=== PATIENT | male | born 1980 | race Caucasian/White ===

== ENCOUNTER 2018-11-06 15:08 | Inpatient (IN) ==
--- NOTE | 2018-11-06 15:33 | ED ---
HPI General Chief Complaint: Back Pain/Injury Stated Complaint: Back Pain Time Seen by Provider: 11/06/18 15:25 Source: patient Mode of arrival: EMS History of Present Illness HPI Narrative: Patient is a 38-year-old male with no stated past medical history who presents today with complaints of back pain. Patient states the pain has been ongoing since June. He has had progressive weakening of his lower extremities with numbness, tingling, and pain in his right leg. He states initially in June he would just get fatigued and would be unable to stand for long periods of time but this is progressively worsened to the point where the second week in September he was in bed primarily because he could not stand. He was seen for this on 11/[address] Buitrago and was prescribed naproxen as well as Flexeril and advised to follow-up and get the MRI done that was scheduled. Patient states that today he sneezed and felt something give in his back, reporting he was immediately not able to support himself and lowered himself to the ground. He called EMS and was brought here for further evaluation. Patient reports he has an MRI scheduled next week. He reports the naproxen and Flexeril are not really helping. Denies any bowel or bladder incontinence or saddle anesthesia. Related Data Home Medications Medication Instructions Recorded Confirmed fenofibrate 160 mg PO DAILY 11/03/18 11/06/18 fluoxetine [Prozac] 30 mg PO DAILY 11/03/18 11/06/18 levothyroxine 112 mcg PO DAILY 11/03/18 11/06/18 lisinopril 10 mg PO DAILY 11/03/18 11/06/18 topiramate [Topamax] 100 mg PO BID 11/03/18 11/06/18 Previous Rx's Medication Instructions Recorded cyclobenzaprine 10 mg PO Q8H PRN #15 tab 11/03/18 naproxen 500 mg PO Q12H PRN #20 tab 11/03/18 Allergies Allergy/AdvReac Type Severity Reaction Status Date / Time No Known Allergies Allergy Verified 11/03/18 14:33 Review of Systems ROS: all other systems reviewed are negative PMFSH Social History Social History Substance History: No History of Abuse Smoking Status: Never smoker How Often Do You Have a Drink Containing Alcohol: Never Recent Travel in [facility] within the Last 8 Weeks: No Recent Out of Country Travel within the Last 8 Weeks: No Course Initial Documented Vital Signs Temperature 98.4 F 11/06/18 15:33 Pulse Rate 60 11/06/18 15:33 Respiratory Rate 16 11/06/18 15:33 Blood Pressure 114/64 11/06/18 15:33 Pulse Oximetry 97 11/06/18 15:33 Last Documented Vital Signs Temperature 98.4 F 11/06/18 15:33 Pulse Rate 75 11/06/18 18:08 Respiratory Rate 16 11/06/18 18:17 Blood Pressure 115/67 11/06/18 18:08 Pulse Oximetry 97 11/06/18 18:08 Medical Decision Making DANIEL Attestation DANIEL supervised visit: Yes Attestation: I, Dr. Harrison, have reviewed the advance practice practitioner's documentation and am in agreement, met with the patient face to face, made the diagnosis, and the medical decision making was done by me. *My assessment and Findings: Herniated nucleus pulposus at L4-L5 level. There is thecal sac compression with nerve compression. Patient is currently not with acute weakness. He does have pain and some paresthesias down his right leg. Discussion with Dr. Puentes, on-call neurosurgeon results and recommending the patient be admitted. The patient will be admitted to the hospitalist service. Patient was discussed with Dr. ariza. Plan is to observe and likely do surgery on Friday. MDM Narrative Medical decision making narrative: .38-year-old male patient with back pain since June with progressive weakening of the lower extremities as well as pain in the right lower extremity presents today with exacerbation of right lower extremity weakness and pain after sneezing earlier today. On exam motor strength is 4-5 out of 5 bilateral lower extremities. Normal sensation. Pepcid patient is able to dorsiflex and plantarflex. 1+ patellar reflexes bilaterally. Patient's history MRI was ordered. MRI showed degenerative disc disease at L4-L5 with a large disc protrusion demonstrating mass-effect on the nerve roots within the thecal sac. Call placed to Dr. Puentes by Dr. Harrison. Case discussed at length. Dr. Puentes suggest admission observation with possible surgery on Friday. Discussed plan of care with patient who is in agreement. Call placed to hospitalist for admission. Saline lock placed. Solu-Medrol 125 mg IV given. Medical Screen Exam Complete: Yes Emergency Medical Condition: Yes Differential Diagnosis Differential Diagnosis: Lumbar radiculopathy/sciatica Lab Data Result diagrams: 11/06/18 18:05 11/06/18 18:05 Lab Results 11/06/18 11/06/18 11/06/18 Range/Units 18:05 18:05 18:05 CBC w Diff Slide review pending WBC 15.5 H (4.0-11.0) th/mm3 RBC 4.13 L (4.50-5.90) mil/mm3 Hgb 13.1 (13.0-17.0) gm/dL Hct 38.9 L (39.0-51.0) % MCV 94.2 (80.0-100.0) fL MCH 31.7 (27.0-34.0) pg MCHC 33.7 (32.0-36.0) % RDW 13.6 (11.6-17.2) % Plt Count 274 (150-450) th/mm3 MPV 9.5 (7.0-11.0) fL Neut % (Auto) 73.6 H (16.0-70.0) % Lymph % (Auto) 17.8 (9.0-44.0) % [place] % (Auto) 5.0 (0.0-8.0) % Eos % (Auto) 2.5 (0.0-4.0) % Baso % (Auto) 1.1 (0.0-2.0) % Neut # (Auto) 11.3 H (1.8-7.7) th/mm3 Lymph # (Auto) 2.8 (1.0-4.8) th/mm3 [place] # (Auto) 0.8 (0.0-0.9) th/mm3 Eos # (Auto) 0.4 (0.0-0.4) th/mm3 Baso # (Auto) 0.2 (0.0-0.2) th/mm3 WBC Differential . Diff Scan Auto diff confirmed Differential Comment . Platelet Estimate Normal (Normal) Platelet Morphology Normal (Normal) RBC Morphology Normal (Normal) PT 10.6 (9.8-11.6) sec INR 1.0 Ratio Sodium 141 (136-145) meq/L Potassium 3.9 (3.5-5.1) meq/L Chloride 106 (98-107) meq/L Carbon Dioxide 25.8 (21.0-32.0) meq/L Anion Gap 9 (5-15) meq/L BUN 28 H (7-18) mg/dL Creatinine 1.10 (0.60-1.30) mg/dL Estimated GFR 75 L (>89) mL/min Random Glucose 92 (74-106) mg/dL Calcium 8.9 (8.5-10.1) mg/dL Imaging Data Radiologist's impression: Lumbar Spine MRI 11/06/18 15:26 CONCLUSION: 1. Degenerative disc disease at L4-5 with large disc protrusion demonstrating mass effect on the nerve roots within the thecal sac. Discharge Plan Discharge Disposition Patient Disposition: ED Admit(ED Internal Use Only) Discharge Details Diagnosis: Herniated nucleus pulposus, L4-5, Hypertension, Hypothyroidism Physicians Team ED Provider: Fracisco Harrison ED Midlevel Provider: Betzaida Valles Primary Care Provider: NON STAFF,PROVIDER Other Providers: ; Sivakumar Puentes Rxs /Orders / Referrals /Forms Prescriptions: No Action lisinopril 10 mg Tablet 10 mg PO DAILY RF: 0 fluoxetine [Prozac] 10 mg Capsule 30 mg PO DAILY RF: 0 topiramate [Topamax] 100 mg Tablet 100 mg PO BID RF: 0 levothyroxine 112 mcg Tablet 112 mcg PO DAILY RF: 0 fenofibrate 160 mg Tablet 160 mg PO DAILY RF: 0 naproxen 500 mg tablet 500 mg PO Q12H PRN (Reason: pain) Qty: 20 RF: 0 cyclobenzaprine 10 mg tablet 10 mg PO Q8H PRN (Reason: muscle spasm) Qty: 15 RF: 0 Status ED Status: Admitted Patient
--- NOTE | 2018-11-06 17:31 | MR ---
EXAM DATE: 11/06/2018 5:22 PM EST AGE/SEX: 38 years / Male INDICATIONS: Inability to ambulate. Low back and right leg pain. CLINICAL DATA: This is the patient's initial encounter. Patient reports that signs and symptoms have been present for 1 day and indicates a pain score of 5/10. MEDICAL/SURGICAL HISTORY: None. Cholecystectomy. COMPARISON: . TECHNIQUE: Multiplanar, multisequence MRI of the lumbar spine was performed without contrast. Patie nt was scanned in a sitting position; neutral, flexion, and extension scans were performed in the sa gittal plane. FINDINGS: The most caudal-appearing lumbar vertebra is numbered as L5. There is mild disc desiccation greatest at L4-5. Mild anterior osteophyte formation at L4 and L5 is s een. There is mild reactive endplate edema at L4-5. T12-L1: The thecal sac has a normal diameter. No evidence of disc bulge or protrusion. The neural foramina are patent bilaterally. L1-L2: The thecal sac has a normal diameter. No evidence of disc bulge or protrusion. The neural foramina are patent bilaterally. L2-L3: The thecal sac has a normal diameter. No evidence of disc bulge or protrusion. The neural foramina are patent bilaterally. L3-L4: The thecal sac has a normal diameter. No evidence of disc bulge or protrusion. The neural foramina are patent bilaterally. L4-L5: A large right central disc protrusion identified resulting in moderate canal stenosis and ma ss effect on the nerve roots within the thecal sac. On axial image 32 the protrusion extends 1.1 cm i n AP dimension and 1 cm in transverse dimension. L5-S1: The thecal sac has a normal diameter. No evidence of disc bulge or protrusion. The neural foramina are patent bilaterally. CONCLUSION: 1. Degenerative disc disease at L4-5 with large disc protrusion demonstrating mass effect on the ner ve roots within the thecal sac. Electronically signed by: Chacorta Agarwal MD Board Certified Radiologist 11/06/2018 5:30 PM EST
[2018-11-06] MEDS ORDERED: MethylPREDNISolone Sod Succinate Inj 125 MG/2 ML Vial IV.PUSH ONE (17:51)
[2018-11-06] MEDS ORDERED: Acetaminophen 325 MG Tablet PO PRN (18:06)
[2018-11-06] MEDS ORDERED: Naloxone Inj 0.4 MG/ML Vial IV.PUSH PRN (18:06)
[2018-11-06] MEDS ORDERED: Temazepam 15 MG Capsule PO PRN (18:06)
[2018-11-06] MEDS ORDERED: Bisacodyl 10 MG Supp RECTAL PRN (18:06)
[2018-11-06 18:12] LABS: Baso # (Auto) 0.2 th/mm3 (0.0-0.2); Baso % (Auto) 1.1 % (0.0-2.0); Eos # (Auto) 0.4 th/mm3 (0.0-0.4); Eos % (Auto) 2.5 % (0.0-4.0); Hematocrit 38.9 % (39.0-51.0); Hemoglobin 13.1 gm/dL (13.0-17.0); Lymph # (Auto) 2.8 th/mm3 (1.0-4.8); Lymph % (Auto) 17.8 % (9.0-44.0); Mean Corpuscular HGB Conc 33.7 % (32.0-36.0); Mean Corpuscular Hemoglobin 31.7 pg (27.0-34.0); Mean Corpuscular Volume 94.2 fL (80.0-100.0); Mean Platelet Volume 9.5 fL (7.0-11.0); Mono # (Auto) 0.8 th/mm3 (0.0-0.9); Neut # (Auto) 11.3 th/mm3 (1.8-7.7); Neut % (Auto) 73.6 % (16.0-70.0); Platelet Count 274 th/mm3 (150-450); Red Blood Count 4.13 mil/mm3 (4.50-5.90); Red Cell Distribution Width 13.6 % (11.6-17.2); White Blood Count 15.5 th/mm3 (4.0-11.0)
[2018-11-06 18:25] LABS: Potassium 3.9 meq/L (3.5-5.1)
[2018-11-06 18:27] LABS: Calcium 8.9 mg/dL (8.5-10.1)
[2018-11-06 18:28] LABS: Carbon Dioxide 25.8 meq/L (21.0-32.0); Prothrombin Time 10.6 sec (9.8-11.6)
[2018-11-06 18:29] LABS: Platelet Estimate Normal (Normal); Platelet Morphology Normal (Normal); RBC Morphology Normal (Normal)
[2018-11-06] MEDS: Senna/Docusate Sodium 8.6/50 MG Tablet PO SCH (20:37)
[2018-11-06] MEDS: Topiramate 100 MG Tablet PO SCH (20:38)
--- NOTE | 2018-11-07 06:42 | P.HPIM ---
History of Present Illness Primary Care Physician: PROVIDER NON STAFF Mr. Black is a pleasant 38-year-old male with a history of hypertension, hypothyroidism, hypertriglyceridemia, and PTSD who presented to the emergency room and [employer] on 11/06/2018 complaining of severe back pain with inability to ambulate. MRI of the lumbar spine without contrast showed degenerative disc disease at L4 through L5 with large disc protrusion demonstrating mass-effect on the nerve roots within the thecal sac. He was transferred to [facility] for further evaluation and management with neurosurgery consultation. The patient is seen in his hospital room where he reports that he has been having symptoms since about June. He has had some progressive weakness and was spending more more time lying in bed. He thought that he was just having muscle pain and weakness related to muscle spasms. He was trying to work them out with a yoga routine. Yesterday, he sneezed and felt something "pop" in his back with immediate inability to support himself in a standing position. He crawled from his car to his garage and decided to call EMS for transport to the hospital. He is also complaining of right lower extremity radicular pain that goes down the back of the thigh and is described as sharp and shooting with some numbness and tingling. He reports improvement in symptoms with IV steroids , opioids, and muscle relaxants he is received here at the hospital. He denies any recent fevers, chills, nausea, vomiting, diarrhea, chest pain, shortness of breath. He denies saddle anesthesia as well as denying bowel or bladder incontinence. He indicates he is normally fairly healthy and has recently intentionally lost some weight with diet and exercise. Inpatient Certification Inpatient Certification: I certify that the inpatient services were ordered in accordance with Medicare regulations governing the order. This includes certification that hospital inpatient services are reasonable and necessary and in the case of services not specified as inpatient-only under 42 CFR 419.22(n), that they are appropriately provided as inpatient services in accordance to with the 2-midnight benchmark under 43 CFR 412.3(e) Estimated Total Length of Stay (Days): 2 Plans for Post Hospital Care: Not yet determined Review of Systems Review of Systems: all other systems reviewed are negative [facility] Medical History Medical History Hypertriglyceridemia (Chronic) Hypothyroidism (Chronic) Hypertension (Chronic) PTSD (post-traumatic stress disorder) (Chronic) Surgical History Surgical History History of appendectomy (Acute) History of tonsillectomy and adenoidectomy (Acute) H/O vasectomy (Acute) Hx of cholecystectomy (Acute) S/P repair of hydrocele (Acute) Social History Social History Substance History: No History of Abuse Smoking Status: Never smoker How Often Do You Have a Drink Containing Alcohol: Never Recent Travel in [facility] within the Last 8 Weeks: No Recent Out of Country Travel within the Last 8 Weeks: No Immunization History Tetanus Immunization: <5 Years Medications and Allergies Allergies Allergy/AdvReac Type Severity Reaction Status Date / Time No Known Allergies Allergy Verified 11/03/18 14:33 Home Medications Medication Instructions Recorded Confirmed Type fenofibrate 160 mg PO DAILY 11/03/18 11/06/18 History fluoxetine [Prozac] 30 mg PO DAILY 11/03/18 11/06/18 History levothyroxine 112 mcg PO DAILY 11/03/18 11/06/18 History lisinopril 10 mg PO DAILY 11/03/18 11/06/18 History topiramate [Topamax] 100 mg PO BID 11/03/18 11/06/18 History Active Medications: Active Medications Acetaminophen (Tylenol) 650 mg PO Q4H PRN PRN Reason: Temp > 100.4 Al Hydroxide/Mg Hydroxide (Milk Of Magnesia Liq) 30 ml PO Q12H PRN PRN Reason: Mild Constipation Bisacodyl (Dulcolax Supp) 10 mg RECTAL DAILY PRN PRN Reason: SEVERE CONSITIPATION Cyclobenzaprine HCl (Flexeril) 10 mg PO Q8H PRN PRN Reason: muscle spasm Last Admin: 11/06/18 23:27 Dose: 10 mg Dexamethasone Sodium Phosphate (Decadron Inj) 4 mg IV.PUSH Q6HR EVAN Last Admin: 11/06/18 23:27 Dose: 4 mg Fenofibrate (Tricor) 145 mg PO DAILY EVAN Lactulose (Lactulose Liq) 30 ml PO DAILY PRN PRN Reason: SEVERE CONSITIPATION Levothyroxine Sodium (Synthroid) 112 mcg PO DAILY EVAN Lisinopril (Prinivil) 10 mg PO DAILY EVAN Naloxone HCl (Narcan Inj) 0.4 mg IV.PUSH UNSCH PRN PRN Reason: SEE LABEL COMMENTS Ondansetron HCl (Zofran Inj) 4 mg IV.PUSH Q6H PRN PRN Reason: NAUSEA OR VOMITING Oxycodone/Acetaminophen (Percocet 5/325 Mg) 1 tab PO Q6H PRN PRN Reason: Acute Pain Pantoprazole Sodium (Protonix) 40 mg PO DAILY [facility] Senna/Docusate Sodium (Martha-Colace) 1 tab PO BID [facility] Last Admin: 11/06/18 20:37 Dose: 1 tab Sennosides (Senokot) 17.2 mg PO Q12H PRN PRN Reason: Moderate Constipation Sodium Chloride (Ns Flush) 2 ml IV.FLUSH BID [facility] Last Admin: 11/06/18 20:39 Dose: 2 ml Sodium Chloride (Ns Flush) 2 ml IV.FLUSH PRN PRN PRN Reason: FLUSH AFTER USING IV ACCESS Temazepam (Restoril) 15 mg PO HS PRN PRN Reason: INSOMNIA Topiramate (Topamax) 100 mg PO BID [facility] Last Admin: 11/06/18 20:38 Dose: 100 mg Physical Exam Vital signs: Vital Signs 11/06/18 15:33 11/06/18 18:08 11/06/18 18:17 Temperature 98.4 F Pulse Rate 60 75 Respiratory Rate 16 16 16 Blood Pressure 114/64 115/67 Pulse Oximetry 97 97 11/06/18 19:57 11/06/18 21:40 11/06/18 23:40 Temperature 98 F Pulse Rate 76 72 67 Respiratory Rate 18 18 16 Blood Pressure 127/76 135/72 117/62 Pulse Oximetry 98 98 96 11/07/18 04:00 Temperature 97.5 F L Pulse Rate 55 L Respiratory Rate 12 Blood Pressure 111/63 Pulse Oximetry 98 Intake & Output 11/06/18 11/06/18 11/07/18 06:59 18:59 06:59 Weight 83.007 kg Narrative: GENERAL: This is a pleasant well-nourished, well-developed patient, in no apparent distress. SKIN: No rashes, ecchymoses or lesions. Cool and dry. HEAD: Atraumatic. Normocephalic. EYES: No scleral icterus. No injection or drainage. ENT: Nose without bleeding, purulent drainage. NECK: Trachea midline. No JVD. CARDIOVASCULAR: Regular rate and rhythm without murmurs, gallops, or rubs. RESPIRATORY: Clear to auscultation. Breath sounds equal bilaterally. No wheezes , rales, or rhonchi. GASTROINTESTINAL: Abdomen soft, non-tender, nondistended. No guarding. c/o right radicular pain during exam. MUSCULOSKELETAL: Extremities without clubbing, cyanosis, or edema. No calf tenderness. NEUROLOGICAL: Awake and alert. Motor and sensory grossly within normal limits. Normal speech. . Results Labs CBC & Chem 7: 11/06/18 18:05 11/06/18 18:05 Imaging Impressions Lumbar Spine MRI 11/06/18 15:26 CONCLUSION: 1. Degenerative disc disease at L4-5 with large disc protrusion demonstrating mass effect on the nerve roots within the thecal sac. Caprini VTE Risk Assessment Caprini VTE Risk Assessment: No/Low Risk (score <= 1) Caprini Risk Assessment Model: Point Value = 1 Point Value = 2 Point Value = 3 Point Value = 5 Age 41-60 Minor surgery BMI > 25 kg/m2 Swollen legs Varicose veins or History of unexplained or recurrent spontaneous Oral contraceptives or hormone replacement Sepsis (< 1 month) Serious lung disease, including pneumonia (< 1 month) Abnormal pulmonary function Acute myocardial infarction Congestive heart failure (< 1 month) History of inflammatory bowel disease Medical patient at bed rest Age 61-74 Arthroscopic surgery Major open surgery (> 45 min) Laparoscopic surgery (> 45 min) Malignancy Confined to bed (> 72 hours) Immobilizing plaster cast Central venous access Age >= 75 History of VTE Family history of VTE Factor V Leiden Prothrombin [id number] Lupus anticoagulant Anticardiolipin antibodies Elevated serum homocysteine Heparin-induced thrombocytopenia Other congenital or acquired thrombophilia Stroke (< 1 month) Elective arthroplasty Hip, pelvis, or leg fracture Acute spinal cord injury (< 1 month) Prophylaxis Regimen: Total Risk Factor Score Risk Level Prophylaxis Regimen 0-1 Low Early ambulation 2 Moderate Order ONE of the following: *Sequential Compression Device (SCD) *Heparin 5000 units SQ BID 3-4 Higher Order ONE of the following medications: *Heparin 5000 units SQ TID *Enoxaparin/Lovenox 40 mg SQ daily (WT < 150 kg, CrCl > 30 mL/min) *Enoxaparin/Lovenox 30 mg SQ daily (WT < 150 kg, CrCl > 10-29 mL/min) *Enoxaparin/Lovenox 30 mg SQ BID (WT < 150 kg, CrCl > 30 mL/min) AND/OR *Sequential Compression Device (SCD) 5 or more Highest Order ONE of the following medications: *Heparin 5000 units SQ TID (Preferred with Epidurals) *Enoxaparin/Lovenox 40 mg SQ daily (WT < 150 kg, CrCl > 30 mL/min) *Enoxaparin/Lovenox 30 mg SQ daily (WT < 150 kg, CrCl > 10-29 mL/min) *Enoxaparin/Lovenox 30 mg SQ BID (WT < 150 kg, CrCl > 30 mL/min) AND *Sequential Compression Device (SCD) Assessment and Plan Plan Mr. Black is a pleasant 38-year-old male with a history of hypertension, hypothyroidism, hypertriglyceridemia, and PTSD who presented to the emergency room and [employer] on 11/06/2018 complaining of severe back pain with inability to ambulate. MRI of the lumbar spine without contrast showed degenerative disc disease at L4 through L5 with large disc protrusion demonstrating mass-effect on the nerve roots within the thecal sac. He was transferred to [facility] for further evaluation and management with neurosurgery consultation. Herniated nucleus pulposis L4 through L5 -Consult to neurosurgery -appreciate assistance -Plan for possible surgery Friday after observing and providing anti- inflammatory medications over the weekend -Analgesia: Percocet 5/325 1 every 6 as needed, Flexeril 10 mg p.o. every 8 hours as needed for muscle spasm -Anti-inflammatory: Dexamethasone 4 mg IV every 6 hours with Protonix 40 mg p.o. daily for gastric protection -Neurochecks every 4 hours Hypertension -Continue home lisinopril and monitor blood pressures and titrate treatments as needed Hypertriglyceridemia -Continue home fenofibrate or formulary equivalent Hypothyroidism -Continue home Synthroid PTSD -Continue home Prozac and Topamax DVT prophylaxis -SCDs The exam, history, and the medical decision-making described in the above note were completed with the assistance of the mid-level provider. I reviewed and agree with the findings presented. I attest that I had a [id number] encounter with the patient on the same day, and personally performed and documented my assessment and findings in the medical record. NeuroSx has seen and evaluated patient and recommended bilateral L4-L5 microdiscectomy which patient agrees NPO rubens night full labwork on rocky am neuro checks PT after surgery completed UA w/cultures as per neuroSx continue pain management HOLD lisinopril day prior to OR b continue steroids for now and continue PPI too for GI ppx dvt ppx: scd ok, after OR will recommend ac start for dvt chemoprevention
[2018-11-07] MEDS: FLUoxetine 10 MG Capsule PO SCH (09:42)
[2018-11-07] MEDS: Levothyroxine 112 MCG Tablet PO SCH (09:42)
[2018-11-07] MEDS: Topiramate 100 MG Tablet PO SCH ×2 (09:43→21:04)
[2018-11-07] MEDS: Senna/Docusate Sodium 8.6/50 MG Tablet PO SCH ×2 (09:43→21:04)
[2018-11-07] MEDS: Fenofibrate 145 MG Tablet PO SCH (09:43)
[2018-11-07] MEDS: Lisinopril 10 MG Tablet PO SCH (09:43)
--- NOTE | 2018-11-07 10:33 | MB ---
cc: Jimmy Maldonado MD DATE: 11/07/2018 TIME: 9 a.m. Report of an initial comprehensive floor inpatient neurosurgical consultation. The patient was interviewed, examined, the documentation, laboratory evaluation, and imaging were reviewed. CHIEF COMPLAINT: Low back pain and right sciatica. 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 He describes some numbness in right sciatic distribution and recently some numbness in the left sciatic distribution as well. In any case, he apparently was trying to treat this with bedrest as well as yoga. In any case, he sneezed and developed severe pain and fell to the ground, unable to support himself. This resolved. He sought medical attention in an emergency department and then was transferred here to [facility]. An MRI scan of the lumbosacral spine reveals large free fragment disk herniation at L4-L5, located centrally and paracentrally on the right with cauda equina nerve root compression. PAST MEDICAL HISTORY: Remarkable for history of hypertriglyceridemia, hypothyroidism, hypertension, and PTSD. PAST SURGICAL HISTORY: Remarkable for an appendectomy, tonsillectomy and adenoidectomy, vasectomy, cholecystectomy, and hydrocele repair. MEDICATIONS: Include: 1. Fenofibrate. 2. Fluoxetine. 3. Levothyroxine. 4. Lisinopril. 5. Topiramate. ALLERGIES: HE HAS NO KNOWN DRUG ALLERGIES. SOCIAL HISTORY: He is independent. He works as an artist and lives with his . He denies a history of illicit drug use, ethanol abuse, or cigarette smoking. He does admit to smoking medical marijuana. FAMILY HISTORY: Remarkable for history of anxiety disorder as well as hypertension. REVIEW OF SYSTEMS: The patient admits to weight change, and he has lost over 80 pounds over the last year or two. He denies any fever, chills, or night sweats. He denies any change in his vision or hearing. He denies any headaches. He denies any difficulty with thinking or memory or speech or swallowing or chest pain or shortness of breath or abdominal pain or change in bowel or bladder function or characteristics of his urine or stool. He denies any rash, itching, or easy bruising. He denies any current anxiety or depression. He denies any gait imbalance. NEUROLOGICAL EXAMINATION: VITAL SIGNS: His temperature is 98, his heart rate is 75, blood pressure is 150/67 and his respiratory rate is 16 with an SpO2 on pulse oximetry of 97%. MENTAL STATUS: Testing finds the patient to be awake and alert. He is oriented x3. Cognitive function is grossly intact. His speech is fluent. He seems somewhat anxious and has somewhat of an unusual affect. Cranial nerve testing 2-12 are grossly intact. Visual louis are full to confrontation. 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 His extraocular movements are full, but is conjugant on the right. Funduscopic examination was deferred due to small pupils. Motor examination found bulk and tone to be within normal limits. Power testing was 5+/5+ throughout. Sensory examination was intact to light touch and position throughout with diminished sensation in the bilateral sciatic distribution, right greater than left. Deep tendon reflexes are 1 to 2+ and symmetric with diminished ankle jerks bilaterally. There were no pathological reflexes noted. Cerebellar testing found no dysmetria. Fine coordination was grossly intact. There was no gross truncal nor appendicular ataxia noted. Gait, Romberg, and tandem were not tested. The patient states he is unable to ambulate. His head was normocephalic. Skin was clear, without masses. Neck was supple without meningismus. Lumbosacral spine evaluation revealed pain to palpation over the midline as well as for L4-L5 bilaterally. There was no sciatic notch tenderness. Straight leg raising was positive on the right at 40 degrees and positive on the left at 90 degrees. Hip rotation was full, not painful. It did cause pain to radiate in the low back. Pulses were 4+ present and symmetrical throughout. IMPRESSION: My impression is that the patient has a large free fragment disk herniation at L4-L5, located centrally and paracentrally on the right. He presents with bilateral L5-S1 radiculopathies, more so on the right than the left. He has failed a prolonged course of conservative treatment. RECOMMENDATIONS: Therapeutic options were discussed. I offered bilateral L4-L5 microdiscectomy. The risks, benefits, limitations, complications, and alternatives of this were discussed and enumerated and no guarantees were afforded. He understood this and requested surgical intervention. Essentially informed consent has been obtained and the patient will be scheduled for the above-stated operation early next week. Preoperative orders will be submitted. Thank you for allowing me to participate in the care of this patient. MD CHEYANNE Gruber/brad , 09:40 AM , 09:51 AM MTDIsrael
[2018-11-07 21:58] LABS: Amorphous Sediment,Urine Rare /hpf; Bilirubin,Urine Negative (Negative); Clarity,Urine Hazy (Clear); Color,Urine Yellow (Yellw/Straw); Glucose,Urine (UA) Negative (Negative); Leukocyte Esterase,Urine Negative (Negative); Mucus,Urine Few /lpf (Occasional); Nitrite,Urine Negative (Negative); Specific Gravity,Urine 1.011 (1.002-1.035)
[2018-11-08] MEDS: Lisinopril 10 MG Tablet PO SCH ×2 (09:00→10:01)
[2018-11-08] MEDS: FLUoxetine 10 MG Capsule PO SCH (10:00)
[2018-11-08] MEDS: Levothyroxine 112 MCG Tablet PO SCH (10:01)
[2018-11-08] MEDS: Topiramate 100 MG Tablet PO SCH ×2 (10:01→21:18)
[2018-11-08] MEDS: Senna/Docusate Sodium 8.6/50 MG Tablet PO SCH ×2 (10:02→21:18)
[2018-11-08] MEDS: Fenofibrate 145 MG Tablet PO SCH (10:02)
[2018-11-08] MEDS ORDERED: Metoprolol Tartrate 25 MG Tablet PO ONE (10:16)
[2018-11-08] MEDS ORDERED: Chlorhexidine Gluconate 2% 1 Pack (2 Cloths) TOPICAL ONE (10:16)
[2018-11-08] MEDS ORDERED: Sodium Chlor 0.9% Inj 500 ML IV.SIG SCH (11:00)
--- NOTE | 2018-11-08 12:00 | P.PNIM ---
Subjective Interval history: very pleasant male visited and examined this morning at the bedside + backpain but stable and mildly improved last 24hrs no urinary retention no complaints of saddle anesthesia Physical Exam Vital signs: Vital Signs 11/07/18 12:00 11/07/18 16:00 11/07/18 20:00 Temperature 98.3 F 98.1 F 97.9 F Pulse Rate 74 78 69 Respiratory Rate 20 18 18 Blood Pressure 122/65 124/75 133/82 Pulse Oximetry 97 100 99 11/08/18 00:00 11/08/18 04:00 11/08/18 07:36 Temperature 98.1 F 98.2 F 98.1 F Pulse Rate 50 L 75 66 Respiratory Rate 17 17 18 Blood Pressure 110/60 107/69 110/69 Pulse Oximetry 99 99 94 L 11/08/18 11:32 Temperature 98 F Pulse Rate 75 Respiratory Rate 18 Blood Pressure 120/65 Pulse Oximetry 97 Intake & Output 11/07/18 11/08/18 11/08/18 18:59 06:59 18:59 Intake Total 240 / 240 480 / 480 Balance 240 / 240 480 / 480 Weight 83.1 kg Intake: Oral 240 / 240 480 / 480 Other: # Voids 1 2 1 Date of Last Bowel Movement 11/06/18 11/07/18 # Bowel Movements 1 1 Narrative: GENERAL: This is a pleasant well-nourished, well-developed patient, in no apparent distress. SKIN: No rashes, ecchymoses or lesions. Cool and dry. HEAD: Atraumatic. Normocephalic. EYES: No scleral icterus. No injection or drainage. ENT: Nose without bleeding, purulent drainage. NECK: Trachea midline. No JVD. CARDIOVASCULAR: Regular rate and rhythm without murmurs, gallops, or rubs. RESPIRATORY: Clear to auscultation. Breath sounds equal bilaterally. No wheezes , rales, or rhonchi. GASTROINTESTINAL: Abdomen soft, non-tender, nondistended. No guarding. c/o right radicular pain during exam. MUSCULOSKELETAL: Extremities without clubbing, cyanosis, or edema. No calf tenderness. NEUROLOGICAL: Awake and alert. Motor and sensory grossly within normal limits. Normal speech. no paraspinal tenderness. power 5/5 upper and lower extremity . Results Labs CBC & Chem 7: 11/06/18 18:05 11/06/18 18:05 Assessment and Plan Plan Mr. Black is a pleasant 38-year-old male with a history of hypertension, hypothyroidism, hypertriglyceridemia, and PTSD who presented to the emergency room and [place] on 11/06/2018 complaining of severe back pain with inability to ambulate. MRI of the lumbar spine without contrast showed degenerative disc disease at L4 through L5 with large disc protrusion demonstrating mass-effect on the nerve roots within the thecal sac. He was transferred to [facility] for further evaluation and management with neurosurgery consultation. Herniated nucleus pulposis L4 through L5 -NeurosX recommendations appreciated NPO friday night. O.R friday -Analgesia: Percocet 5/325 1 every 6 as needed, Flexeril 10 mg p.o. every 8 hours as needed for muscle spasm -Anti-inflammatory: Dexamethasone 4 mg IV every 6 hours with Protonix 40 mg p.o. daily for gastric protection -Neurochecks every 4 hours Hypertension -Continue home lisinopril and monitor blood pressures and titrate treatments as needed Hypertriglyceridemia -Continue home fenofibrate or formulary equivalent Hypothyroidism -Continue home Synthroid PTSD -Continue home Prozac and Topamax DVT prophylaxis -SCDs
[2018-11-08 12:30] LABS: Hematocrit 40.9 % (39.0-51.0); Hemoglobin 13.7 gm/dL (13.0-17.0); Mean Corpuscular HGB Conc 33.6 % (32.0-36.0); Mean Corpuscular Hemoglobin 32.5 pg (27.0-34.0); Mean Corpuscular Volume 96.7 fL (80.0-100.0); Mean Platelet Volume 9.2 fL (7.0-11.0); Platelet Count 263 th/mm3 (150-450); Red Blood Count 4.23 mil/mm3 (4.50-5.90); Red Cell Distribution Width 13.8 % (11.6-17.2)
[2018-11-08 12:36] LABS: INR 1.1 Ratio; Prothrombin Time 10.7 sec (9.8-11.6)
[2018-11-08 12:55] LABS: Calcium 9.3 mg/dL (8.5-10.1); Carbon Dioxide 26.1 meq/L (21.0-32.0); Magnesium 2.2 mg/dL (1.5-2.5)
--- NOTE | 2018-11-08 13:16 | P.PNNS ---
Subjective Interval history: November 08, 2018 The patient remained stable overnight. He still complains of low back pain and bilateral sciatica right greater than left with numbness in his right lower extremity and somewhat in his left in a sciatic distribution. Physical Exam Vital signs: Vital Signs 11/07/18 16:00 11/07/18 20:00 11/08/18 00:00 Temperature 98.1 F 97.9 F 98.1 F Pulse Rate 78 69 50 L Respiratory Rate 18 18 17 Blood Pressure 124/75 133/82 110/60 Pulse Oximetry 100 99 99 11/08/18 04:00 11/08/18 07:36 11/08/18 11:32 Temperature 98.2 F 98.1 F 98 F Pulse Rate 75 66 75 Respiratory Rate 17 18 18 Blood Pressure 107/69 110/69 120/65 Pulse Oximetry 99 94 L 97 Intake & Output 11/07/18 11/08/18 11/08/18 18:59 06:59 18:59 Intake Total 240 / 240 480 / 480 Balance 240 / 240 480 / 480 Weight 83.1 kg Intake: Oral 240 / 240 480 / 480 Other: # Voids 1 2 1 Date of Last Bowel Movement 11/06/18 11/07/18 # Bowel Movements 1 1 - Routine Neurological Exam November 08, 2018 Patient is lying in bed is into the room. He is in no acute distress. On neurological examination, mental status testing finds him to be awake and alert. He is oriented by 3. Cognitive functions grossly intact. His speech is fluent. Cranial nerve testing 2 through 12 is grossly intact. Power testing was 5+/5+ throughout. Sensory examination revealed diminished light touch and sensation in a bilateral sciatic distribution right greater than left. Deep tendon reflexes remain 1-2+ and symmetric throughout. There were no pathological reflexes noted. Patient is continent. He has ambulated to the bathroom with some difficulty. Assessment and Plan - Plan November 08, 2018 Therapeutic options have been discussed. I have offered a bilateral L4-L5 microdiscectomy. The risks, benefits, limitations, complications, and alternatives to surgery were discussed and enumerated and no guarantees were afforded. He understood and requested surgical intervention. Informed consent has been obtained. Preoperative orders have been submitted and the patient is scheduled for surgery tomorrow morning. Neurosurgery will follow.
[2018-11-08] MEDS ORDERED: Vancomycin Inj 1,000 MG in Sodium Chlor 0.9% Inj 250 ML IV.SIG PRN (18:26)
[2018-11-09] MEDS: Senna/Docusate Sodium 8.6/50 MG Tablet PO SCH ×2 (08:27→20:42)
[2018-11-09] MEDS: Topiramate 100 MG Tablet PO SCH ×2 (08:27→20:42)
[2018-11-09] MEDS: FLUoxetine 10 MG Capsule PO SCH (08:27)
[2018-11-09] MEDS: Levothyroxine 112 MCG Tablet PO SCH (08:27)
[2018-11-09] MEDS: Fenofibrate 145 MG Tablet PO SCH (08:27)
[2018-11-09] MEDS: Lisinopril 10 MG Tablet PO SCH (08:27)
[2018-11-09 08:31] LABS: Hematocrit 43.7 % (39.0-51.0); Hemoglobin 14.7 gm/dL (13.0-17.0); Mean Corpuscular HGB Conc 33.7 % (32.0-36.0); Mean Corpuscular Hemoglobin 32.5 pg (27.0-34.0); Mean Corpuscular Volume 96.4 fL (80.0-100.0); Mean Platelet Volume 9.1 fL (7.0-11.0); Platelet Count 304 th/mm3 (150-450); Red Blood Count 4.54 mil/mm3 (4.50-5.90); Red Cell Distribution Width 13.2 % (11.6-17.2); White Blood Count 18.6 th/mm3 (4.0-11.0)
[2018-11-09 08:42] LABS: INR 1.1 Ratio; Prothrombin Time 10.8 sec (9.8-11.6)
[2018-11-09 08:56] LABS: Calcium 9.2 mg/dL (8.5-10.1); Carbon Dioxide 26.1 meq/L (21.0-32.0); Magnesium 2.2 mg/dL (1.5-2.5); Potassium 3.6 meq/L (3.5-5.1)
--- NOTE | 2018-11-09 12:43 | P.PNIM ---
Subjective Interval history: Patient seen on follow up this morning prior to going to the OR today with NeuroSx. Currently without new complaints and aagain reports that numbness onthe lateral portion of his RIGHT leg is present. No urinary retention, no saddle anesthesia, no active chest pain or SOB Waiting to go to the OR and will need PT afterwards. Currently NPO Physical Exam Vital signs: Vital Signs 11/08/18 15:38 11/08/18 20:25 11/09/18 00:20 Temperature 97.4 F L 98.7 F 98 F Pulse Rate 64 63 60 Respiratory Rate 18 20 20 Blood Pressure 125/75 126/77 119/71 Pulse Oximetry 99 98 100 11/09/18 04:00 11/09/18 07:32 11/09/18 11:53 Temperature 97.6 F 97.8 F 98.2 F Pulse Rate 62 58 L 62 Respiratory Rate 20 18 18 Blood Pressure 121/71 125/68 113/71 Pulse Oximetry 100 93 L 100 Intake & Output 11/08/18 11/09/18 11/09/18 18:59 06:59 18:59 Intake Total 1440 / 1440 Balance 1440 / 1440 Intake: Oral 1440 / 1440 Other: # Voids 2 3 Date of Last Bowel Movement 11/06/18 11/08/18 # Bowel Movements 1 Narrative: GENERAL: This is a pleasant well-nourished, well-developed patient, in no apparent distress. SKIN: No rashes, ecchymoses or lesions. Cool and dry. HEAD: Atraumatic. Normocephalic. EYES: No scleral icterus. No injection or drainage. ENT: Nose without bleeding, purulent drainage. NECK: Trachea midline. No JVD. CARDIOVASCULAR: Regular rate and rhythm without murmurs, gallops, or rubs. RESPIRATORY: Clear to auscultation. Breath sounds equal bilaterally. No wheezes , rales, or rhonchi. GASTROINTESTINAL: Abdomen soft, non-tender, nondistended. No guarding. c/o right radicular pain during exam. MUSCULOSKELETAL: Extremities without clubbing, cyanosis, or edema. No calf tenderness. NEUROLOGICAL: Awake and alert. Motor and sensory grossly within normal limits. Normal speech. no paraspinal tenderness. power 5/5 upper and lower extremity. Reduced sensation on RIGHT lateral portion of leg < LEFT leg, . Results Labs CBC & Chem 7: 11/09/18 07:46 11/09/18 07:46 Assessment and Plan Plan Mr. Black is a pleasant 38-year-old male with a history of hypertension, hypothyroidism, hypertriglyceridemia, and PTSD who presented to the emergency room and [place] on 11/06/2018 complaining of severe back pain with inability to ambulate. MRI of the lumbar spine without contrast showed degenerative disc disease at L4 through L5 with large disc protrusion demonstrating mass-effect on the nerve roots within the thecal sac. He was transferred to [facility] for further evaluation and management with neurosurgery consultation. Herniated nucleus pulposis L4 through L5 -NeurosX recommendations appreciated via EMR OR scheduled this afternoon PT evaluation for 11/10 -Analgesia: Percocet 5/325 1 every 6 as needed, Flexeril 10 mg p.o. every 8 hours as needed for muscle spasm -Anti-inflammatory: Dexamethasone 4 mg IV every 6 hours with Protonix 40 mg p.o. daily for gastric protection. WBC likely due to steroids no other signs of active infection. will taper steroids after surgery as per neuroSx input and assistance. -Neurochecks every 4 hours Hypertension -Continue home lisinopril and monitor blood pressures and titrate treatments as needed Hypertriglyceridemia -Continue home fenofibrate or formulary equivalent Hypothyroidism -Continue home Synthroid PTSD -Continue home Prozac and Topamax DVT prophylaxis -SCDs Dispo: PT consult for tomorrow, NeuroSx follow up. DC 48hrs likely
[2018-11-09] MEDS ORDERED: Albumin Human 5% Inj 250 ML IV.SIG ONE (12:48)
[2018-11-09] MEDS ORDERED: fentaNYL Citrate Inj 250 MCG/5 ML Ampul ONE (12:49)
[2018-11-09] MEDS ORDERED: Propofol Inj 500 MG/50 ML Vial ONE (12:49)
[2018-11-09] MEDS ORDERED: Famotidine PF Inj 20 MG/2 ML Vial ONE (12:49)
[2018-11-09] MEDS ORDERED: methylPREDNISolone acetate 40 MG/ML VIAL ONE (13:06)
[2018-11-09] MEDS ORDERED: Thrombin Topical Soln 5,000 UNIT Vial TOPICAL ONE (13:06)
[2018-11-09] MEDS ORDERED: Gelatin Size 100 Topical Foam ONE (13:06)
[2018-11-09] MEDS ORDERED: Bupivacaine/Epinephrine PF Inj 0.5% 30 ML Vial ONE (13:09)
[2018-11-09] MEDS ORDERED: Bupivacaine Liposomal PF 1.3% Inj 20 ML Vial ONE (13:10)
[2018-11-09] MEDS ORDERED: [UNRECOGNIZED DRUG - OTHER] ONE (13:11)
[2018-11-09] MEDS ORDERED: MINERAL OIL ONE (13:11)
[2018-11-09] MEDS ORDERED: Ketamine Inj 50 MG/5 ML Syringe IV.PUSH ONE (13:19)
[2018-11-09] MEDS ORDERED: HYDROmorphone PF Inj 2 MG/ML Vial ONE (13:19)
[2018-11-09] MEDS ORDERED: Ketorolac Inj 30 MG/ML (IVP) Vial IV.PUSH ONE (13:39)
[2018-11-09] MEDS ORDERED: Lidocaine PF 1% Inj 5 ML Syringe OTHER ONE (13:39)
[2018-11-09] MEDS ORDERED: Phenylephrine/NS 1000 MCG/10ML Syringe IV.PUSH ONE (13:39)
[2018-11-09] MEDS ORDERED: Glycopyrrolate Inj 1 MG/5 ML Syringe IV.PUSH ONE (13:39)
[2018-11-09] MEDS ORDERED: Morphine Sulfate Inj 2 MG/ML Vial IV.PUSH PRN (15:27)
[2018-11-09] MEDS ORDERED: Empty Container, Bottle 1 EACH, Sod Chloride 0.9% Inj 1,000 ML, Bacitracin Inj 50,000 UNIT IRRIGATION ONE ×3 (16:19)
--- NOTE | 2018-11-09 17:21 | XR ---
EXAM DATE: 11/09/2018 5:19 PM EST AGE/SEX: 38 years / Male INDICATIONS: Lumbar spine pain Lumbar laminectomy CLINICAL DATA: This is the patient's initial encounter. Patient reports that signs and symptoms have been present for 2 days and indicates a pain score of Nonresponsive. MEDICAL/SURGICAL HISTORY: . There is mild disc desiccation greatest at L4-5. Mild anterior oste ophyte formation at L4 and L5 is seen. There is mild reactive endplate edema at L4-5. None. COMPARISON: No prior exams available for comparison. FINDINGS: Single lateral view of the lower lumbar spine was performed. There is a localization device placed po steriorly at the second from the bottom disc space level. CONCLUSION: Localization device placed posteriorly at the second from the bottom disc space level. Electronically signed by: Macho Hilton MD Board Certified Radiologist 11/09/2018 5:19 PM EST
[2018-11-09] MEDS ORDERED: Bisacodyl 10 MG Supp RECTAL PRN ×2 (18:39→18:45)
--- NOTE | 2018-11-09 18:39 | P.PCN ---
Date of procedure: 11/09/18 Pre-op diagnosis: Herniated disc at L4-L5 Post-op diagnosis: same Procedure: Bilateral lumbar 4 lumbar 5 microdiscectomy Anesthesia: AGA Surgeon: Jimmy Maldonado Estimated blood loss (mL): 50 Pathology: none sent Condition: stable Disposition: PACU
--- NOTE | 2018-11-09 20:02 | MP ---
cc: Jimmy Maldonado MD DATE OF OPERATION: 11/09/2018 TIME: 4:45 p.m. PREOPERATIVE DIAGNOSIS: Herniated disk at L4-L5 with bilateral radiculopathy, and intractable low back pain. POSTOPERATIVE DIAGNOSIS: Herniated disk at L4-L5 with bilateral radiculopathy, and intractable low back pain. PROCEDURE PERFORMED: Bilateral lumbar 4, lumbar 5 microdiskectomies. SURGEON: Jimmy Maldonado MD INSTRUCTOR BUSINESS EDUCATION: aviation technician aircraft. ANESTHESIA: General endotracheal. ESTIMATED BLOOD LOSS: 50 mL. REPLACEMENT: None needed. COMPLICATIONS: None. SPECIMENS: None. DISPOSITION: To PACU, stable. INDICATIONS: This is a 38-year-old white male, who suffered with the above-stated diagnosis, and failed a prolonged course of conservative treatment. Radiographic evaluation was consistent with the above-stated diagnosis. Therapeutic options were discussed with the patient. The risks, benefits, limitations, complications, and alternatives to the above-stated operation were discussed, enumerated, and no guarantees were afforded. He requested surgical intervention. Informed consent was obtained and the patient was brought to the operating room. DESCRIPTION OF PROCEDURE: The patient was brought to the operating room on a cart. He was intubated and after a sufficient plane of general endotracheal anesthesia was obtained, a Hernandes catheter was placed. Thigh-high HORTENSIA hose and sequential compression devices were placed, and the patient was placed in the prone position on the [place] spinal operating table in a Wilfred frame. Pressure points were padded appropriately. The skin over the lumbosacral region was then shaved, prepped, and draped in a sterile fashion. An appropriate timeout procedure was performed. A needle was placed in the area of the interlaminar space at L4-L5, and C-arm fluoroscopy was used throughout the procedure for localization. This documented the appropriate level. The needle was withdrawn, and the skin was marked, and an incision was made in the midline extending from L3 to the top of S1. Prior to making the incision, the skin and subcutaneous tissue were infiltrated with 0.25% bupivacaine with epinephrine. Incision was brought down through the skin and subcutaneous tissue. Hemostasis was obtained using monopolar coagulation. The fascia was incised, and a subperiosteal dissection was performed, stripping the paraspinal muscles laterally to the facet joints, exposing the spinous process, and lamina of L4 and L5, as well as the facets bilaterally at L4-L5. A [employer] self-retaining retractor system was used to document that we indeed exposed the appropriate level. Retractor system was used to retract the soft tissues. C-arm fluoroscopy imaging was used to determine that we indeed exposed the appropriate level. After so doing, the interlaminar ligament at L4-L5 was removed bilaterally. Then, with the use of operating microscope, magnification illumination performed by this operative tool, hemilaminotomy was performed using a Rio drill and a matchstick carbide bur, and a medial facetectomy was also performed on the right at L4-L5. The ligamentum flavum was elevated and excised, and the spinal canal was entered. There was found to be a large free fragment of disk herniation, which had herniated into the epidural space, and extended cephalad, as well as caudad, and extended from the main dural sac, as well as the shoulder of the right L5 nerve root. It also extended medially. This was removed in a piecemeal fashion. It was necessary to retract the dura using moist cottonoids and a nerve root retractor. A small tear was made over the ventral shoulder of the right L5 nerve root that was a dural tear. There was no egress of cerebral spinal fluid. The arachnoid was intact. In any case, completed diskectomy was performed from this lateral approach. The spinal canal was explored both cephalad, as well as caudad, as well as within the lateral recess and foramen of the right L5 nerve root. It appeared that it was adequately decompressed. Our attention was then directed to the interlaminar space at L4-L5 on the left. The ligamentum flavum was elevated and excised, and the spinal canal was entered and the nerve root was exposed. Minimal hemilaminotomy was performed at L4-L5, and care was taken to maintain the integrity of the facet joint and the facet joint capsule on the left. In any case with moist cottonoids, the main dural sac, as well as the left S1 nerve root, were retracted. A nerve root retractor was also used to retract the shoulder of the left S1 nerve root. There was found to be protrusion with thinning of the posterior longitudinal ligament and the annulus. A cruciate incision was made, and the disk space was entered, and a complete diskectomy was performed on the left at L4-L5. It should be noted that on the right, a complete diskectomy was performed, the disk space was entered, and all free fragments of disk were removed. The disk space was then irrigated, and there were no free fragments of disk. The spinal canal was explored bilaterally, and found to have no free fragments of herniated disk. A small piece of DuraGen was then placed over the small dural tear, and a subcutaneous fat graft was harvested, placed over the DuraGen, and then DuraSeal was then placed over the exposed dural elements. Prior to that, the wound was copiously irrigated with warm bacitracin irrigation, and hemostasis was meticulous. The wound was then approximated in layers. The fascia muscle was approximated using multiple interrupted sutures of 2-0 Vicryl. The fascia was then approximated using multiple interrupted sutures of 2-0 Vicryl. The subcutaneous tissue was then approximated with multiple inverted interrupted sutures of 3-0 Vicryl. A subcuticular 4-0 Monocryl suture was used to approximate the skin edges. Mastisol and Steri-Strips were applied. Antibiotic ointment and sterile dressing were applied. At the completion of the procedure, sponge count, needle count, as well as cottonoid count was correct. Estimated blood loss was 50 mL. No replacement was needed. Complications were apparently none. The patient tolerated the procedure well, and was taken directly to the postanesthetic care unit, stable. MD CHEYANNE Gruber/nancy , 06:59 PM , 07:10 PM
[2018-11-09] MEDS: ceFAZolin 2 GM Premix Inj 2 GM/50 ML PIGGYBACK IV.SIG SCH (20:42)
[2018-11-09] MEDS ORDERED: Senna/Docusate Sodium 8.6/50 MG Tablet PO SCH (21:00)
[2018-11-10] MEDS: ceFAZolin 2 GM Premix Inj 2 GM/50 ML PIGGYBACK IV.SIG SCH ×2 (04:14→11:54)
[2018-11-10 05:12] LABS: Baso % (Auto) 0.1 % (0.0-2.0); Eos % (Auto) 0.1 % (0.0-4.0); Hematocrit 37.4 % (39.0-51.0); Hemoglobin 12.9 gm/dL (13.0-17.0); Lymph # (Auto) 1.8 th/mm3 (1.0-4.8); Lymph % (Auto) 9.2 % (9.0-44.0); Mean Corpuscular HGB Conc 34.4 % (32.0-36.0); Mean Corpuscular Hemoglobin 32.2 pg (27.0-34.0); Mean Corpuscular Volume 93.8 fL (80.0-100.0); Mean Platelet Volume 8.8 fL (7.0-11.0); Mono # (Auto) 1.2 th/mm3 (0.0-0.9); Mono % (Auto) 6.2 % (0.0-8.0); Neut # (Auto) 16.2 th/mm3 (1.8-7.7); Neut % (Auto) 84.4 % (16.0-70.0); Platelet Count 263 th/mm3 (150-450); Red Blood Count 3.99 mil/mm3 (4.50-5.90); Red Cell Distribution Width 13.4 % (11.6-17.2); White Blood Count 19.1 th/mm3 (4.0-11.0)
[2018-11-10 05:34] LABS: Calcium 8.9 mg/dL (8.5-10.1); Carbon Dioxide 24.9 meq/L (21.0-32.0); Potassium 4.3 meq/L (3.5-5.1)
[2018-11-10] MEDS: Heparin - SQ 10,000 UNITS/ML Vial SQ SCH ×2 (06:30→13:42)
[2018-11-10] MEDS: Fenofibrate 145 MG Tablet PO SCH (08:43)
[2018-11-10] MEDS: Senna/Docusate Sodium 8.6/50 MG Tablet PO SCH (08:43)
[2018-11-10] MEDS: Levothyroxine 112 MCG Tablet PO SCH (08:43)
[2018-11-10] MEDS: FLUoxetine 10 MG Capsule PO SCH (08:43)
[2018-11-10] MEDS: Lisinopril 10 MG Tablet PO SCH (08:43)
[2018-11-10] MEDS: Topiramate 100 MG Tablet PO SCH (08:43)
--- NOTE | 2018-11-10 11:33 | P.PNNS ---
Subjective Interval history: Patient presently walking around room, reports good pain control. <Shirlene Martini - Last Filed: 11/10/18 11:28> Physical Exam Vital signs: Vital Signs 11/09/18 11:53 11/09/18 17:06 11/09/18 17:15 Temperature 98.2 F 98.0 F Pulse Rate 62 97 H 79 Respiratory Rate 18 12 10 L Blood Pressure 113/71 135/86 140/84 Pulse Oximetry 100 97 97 11/09/18 17:30 11/09/18 17:45 11/09/18 18:56 Temperature 97.7 F Pulse Rate 79 80 Respiratory Rate 12 15 16 Blood Pressure 135/79 134/75 Pulse Oximetry 99 99 11/09/18 20:15 11/09/18 23:00 11/09/18 23:45 Temperature 98.0 F 98.0 F Pulse Rate 76 57 L Respiratory Rate 18 19 18 Blood Pressure 125/64 120/72 Pulse Oximetry 98 100 11/10/18 04:40 11/10/18 07:41 11/10/18 08:10 Temperature 97.6 F 97.3 F L Pulse Rate 58 L 77 Respiratory Rate 18 16 18 Blood Pressure 122/76 136/87 Pulse Oximetry 99 100 Intake & Output 11/09/18 11/10/18 11/10/18 18:59 06:59 18:59 Intake Total 1780 / 1780 100 / 100 Output Total 50 / 50 Balance 1730 / 1730 100 / 100 Intake: IV 100 / 100 Ancef 2 GM Premix Inj 2 gm In 100 / 100 50 ml @ 100 mls/hr IV.SIG Q8H [facility] Rx#:[id number] Oral 480 / 480 Anesthesia Amount 1300 / 1300 Output: Estimated Blood Loss 50 / 50 Other: # Voids 2 2 Date of Last Bowel Movement 11/09/18 Narrative: awake and alert oriented x3. NAD ambulating unassisted with no ataxia 5/5 strength <Shirlene Martini - Last Filed: 11/10/18 11:28> Vital signs: Vital Signs 11/09/18 17:06 11/09/18 17:15 11/09/18 17:30 Temperature 98.0 F 97.7 F Pulse Rate 97 H 79 79 Respiratory Rate 12 10 L 12 Blood Pressure 135/86 140/84 135/79 Pulse Oximetry 97 97 99 11/09/18 17:45 11/09/18 18:56 11/09/18 20:15 Temperature 98.0 F Pulse Rate 80 76 Respiratory Rate 15 16 18 Blood Pressure 134/75 125/64 Pulse Oximetry 99 98 11/09/18 23:00 11/09/18 23:45 11/10/18 04:40 Temperature 98.0 F 97.6 F Pulse Rate 57 L 58 L Respiratory Rate 19 18 18 Blood Pressure 120/72 122/76 Pulse Oximetry 100 99 11/10/18 07:41 11/10/18 08:10 11/10/18 12:36 Temperature 97.3 F L 97.3 F L Pulse Rate 77 88 Respiratory Rate 16 18 20 Blood Pressure 136/87 124/84 Pulse Oximetry 100 99 Intake & Output 11/09/18 11/10/18 11/10/18 18:59 06:59 18:59 Intake Total 1780 / 1780 100 / 100 50 / 50 Output Total 50 / 50 Balance 1730 / 1730 100 / 100 50 / 50 Intake: IV 100 / 100 50 / 50 Ancef 2 GM Premix Inj 2 gm In 100 / 100 50 / 50 50 ml @ 100 mls/hr IV.SIG Q8H [facility] Rx#:[id number] Oral 480 / 480 Anesthesia Amount 1300 / 1300 Output: Estimated Blood Loss 50 / 50 Other: # Voids 2 2 Date of Last Bowel Movement 11/09/18 <Jimmy Maldonado - Last Filed: 11/10/18 15:04> Assessment and Plan - Plan November 08, 2018 Therapeutic options have been discussed. I have offered a bilateral L4-L5 microdiscectomy. The risks, benefits, limitations, complications, and alternatives to surgery were discussed and enumerated and no guarantees were afforded. He understood and requested surgical intervention. Informed consent has been obtained. Preoperative orders have been submitted and the patient is scheduled for surgery tomorrow morning. Neurosurgery will follow. November 09, 2018 in OR for Bilateral lumbar 4, lumbar [address] Maldonado 11/10/2018 POD #1 Patient reports preoperative pain improved neurologically stable surgical pain controlled patient ambulating patient may follow up in the office in 2 weeks for wound check patient able to D/C home from neurosurgical standpoint will sign off, call PRN <Shirlene Martini - Last Filed: 11/10/18 11:28> - Attending Attestation November 10, 2018 As above, I personally interviewed and examined the patient. I reviewed the documentation, laboratory evaluation, and the imaging. I discussed case with the neurosurgery team we formulated a plan which is as discussed above. The patient is doing well postoperatively. He complains of incisional back pain. Neurologically he is essentially intact. Weakness and numbness that he had in both lower extremities has resolved. From a neurosurgical perspective the patient appears to be stable for discharge. Instructions have been given. He is to follow-up in the neurosurgery clinic in 10-14 days. <Jimmy Maldonado - Last Filed: 11/10/18 15:04>
--- NOTE | 2018-11-10 14:51 | P.DS ---
DS: Providers Date of admission: 11/06/18 19:04 Primary care physician: PROVIDER NON STAFF Consults: 11/06/18 18:12 Consult to Neurosurgery Routine Consulting Provider: Sivakumar Jones Reason for Consultation: 38 yrs with L4-L5 cord compression, please evaluate and advise for therapy Notified:: Physician Spoke with:: DR. JONES Date Notified:: 11/06/18 Time Notified:: 18:27 Ordering Provider: EDUARD DS: Summary pleasant 38-year-old male with a history of hypertension, hypothyroidism, hypertriglyceridemia, and PTSD who presented to the emergency room and [place] on 11/06/2018 complaining of severe back pain with inability to ambulate. MRI of the lumbar spine without contrast showed degenerative disc disease at L4 through L5 with large disc protrusion demonstrating mass-effect on the nerve roots within the thecal sac. He was transferred to [facility] for further evaluation and management with neurosurgery consultation. Patient was seen and evaluated and taken to the operating room 11/09/2018 and underwent lateral lumbar 4 lumbar 5 micro discectomies. Patient tolerated procedure well and had significant improvement in pain. He was counseled at length by physical therapy regarding activities, he was instructed on follow-up, diet, wound care and discharged in stable condition for follow-up with neurosurgery as directed. Discharge diagnosis Herniated nucleus pulposus L4 through L5 with bilateral radiculopathy and intractable low back pain Hypertension Hypertriglyceridemia Hypothyroidism PTSD Time Spent with Patient Total time spent providing and/or coordinating discharge services: Greater than 30 minutes Status at Discharge Functional status at discharge: independent ambulation Overall status at discharge: patient is progressing back to baseline Exam Narrative Exam Narrative: Well-developed well-nourished 38-year-old white male Awake alert oriented no acute distress Heart S1-S2 regular Lungs clear bilateral no wheeze no rhonchi Abdomen soft nondistended positive bowel sounds Extremities no clubbing cyanosis sensation intact pulses intact Results Labs on day of discharge: Labs from last 24 hours 11/10/18 11/10/18 04:58 04:58 WBC 19.1 H RBC 3.99 L Hgb 12.9 L Hct 37.4 L MCV 93.8 MCH 32.2 MCHC 34.4 RDW 13.4 Plt Count 263 MPV 8.8 Neut % (Auto) 84.4 H Lymph % (Auto) 9.2 [place] % (Auto) 6.2 Eos % (Auto) 0.1 Baso % (Auto) 0.1 Neut # (Auto) 16.2 H Lymph # (Auto) 1.8 [place] # (Auto) 1.2 H Eos # (Auto) 0.0 Baso # (Auto) 0.0 WBC Differential . Differential Comment Auto diff final Sodium 138 Potassium 4.3 Chloride 106 Carbon Dioxide 24.9 Anion Gap 7 BUN 33 H Creatinine 1.32 H Estimated GFR 60 L Random Glucose 102 Calcium 8.9 Impressions ITS Impressions Lumbar Spine MRI 11/06/18 15:26 CONCLUSION: 1. Degenerative disc disease at L4-5 with large disc protrusion demonstrating mass effect on the nerve roots within the thecal sac. Lumbar Spine X-Ray 11/09/18 00:00 CONCLUSION: Localization device placed posteriorly at the second from the bottom disc space level. Discharge Plan Discharge Disposition Patient Disposition: Discharge Home Discharge Condition Condition: Good Discharge Order Discharge Orders: Discharge Order (Routine); Ordered 11/10/18 Ordered By: Erika Morales Physicians Team ED Provider: Fracisco Harrison ED Midlevel Provider: Betzaida Valles Primary Care Provider: NON STAFF,PROVIDER Attending Provider: Erika Morales Other Providers: ; Sivakumar Jones Rxs /Orders / Referrals /Forms Prescriptions: New oxycodone-acetaminophen 5-325 mg Tablet 1 tab PO Q6H PRN (Reason: Acute Pain) Qty: 12 RF: 0 methylprednisolone [Medrol (Jhonny)] 4 mg tablets,dose pack 4 mg PO PER PKG DIR Qty: 21 RF: 0 Continue lisinopril 10 mg Tablet 10 mg PO DAILY RF: 0 fluoxetine [Prozac] 10 mg Capsule 30 mg PO DAILY RF: 0 topiramate [Topamax] 100 mg Tablet 100 mg PO BID RF: 0 levothyroxine 112 mcg Tablet 112 mcg PO DAILY RF: 0 fenofibrate 160 mg Tablet 160 mg PO DAILY RF: 0 naproxen 500 mg tablet 500 mg PO Q12H PRN (Reason: pain) Qty: 20 RF: 0 cyclobenzaprine 10 mg tablet 10 mg PO Q8H PRN (Reason: muscle spasm) Qty: 15 RF: 0 Referrals: Sivakumar Jones MD [Physician] - See Instructions ( Please call the physician' s office to book the appointment to be seen within [1 week].) NON STAFF,PROVIDER [Primary Care Provider] - See Instructions Discharge Instructions Patient Printed Instructions: Oxycodone/Acetaminophen (By mouth), Methylprednisolone (By mouth), Laminectomy (DC) Status ED Status: Left Department Discharge Information Discharge Date/Time: 11/10/18 17:54
== END 2018-11-10 17:54 | disposition home or self-care (01) | DRG 519 ==
LOC: PHEFT 15:08 → PHEDA 19:04 → N05 22:18
PROVIDERS: ADMIT Internal Medicine; ATTEND Internal Medicine
CPT/HCPCS: 72020; 72148; 76000; 80048; 81001; 83735; 85025; 85027; 85610; 86850; 86900; 86901; 94150; 97163; 99285; C9290; J0131; J0690; J1030; J1100; J1170; J1644; J1885; J2250; J2370; J2405; J2704; J2930; J3010; J3370; J7030; J7120; P9045